=== PATIENT | male | born 1930 | race Caucasian/White ===

== ENCOUNTER 2019-03-27 21:05 | Observation (INO) | payer MEDICARE, OTHER ==
[~2019-03-27] VITALS: Ht 170.2 cm; Wt 89.5 kg
[~2019-03-27 21:05] MED LIST: METH4TAB3 PO; METH500T PO
--- NOTE | 2019-03-27 21:25 | NUR ---
pt is a&ox4. pt has very specific wishes. pt does not want ivs or "code blues." when asked to explain, he stated no chest compressions, intubation, or iv meds. he is ok with lab draws, im and po meds
[2019-03-27 21:39] LABS: BASOPHILS # (AUTO) 0.1 X10'3 (0-0.2); EOSINOPHILS # (AUTO) 0.2 X10'3 (0-0.9); HEMATOCRIT 43.1 % (42.0-52.0); HEMOGLOBIN 14.4 g/dl (14.0-17.9); LYMPHOCYTES # (AUTO) 2.2 X10'3 (1.1-4.8); LYMPHOCYTES % (AUTO) 24.4 % (21-51); MEAN CORPUSCULAR HGB CONC 33.3 g/dL (33.0-36.5); MEAN CORPUSCULAR VOLUME 87.2 FL (78-98); MEAN PLATELET VOLUME 8.6 FL (7.4-10.4); MONOCYTES # (AUTO) 0.9 X10'3 (0-0.9); MONOCYTES % (AUTO) 10.4 % (2-12); NEUTROPHILS # (AUTO) 5.7 X10'3 (1.8-7.7); NEUTROPHILS % (AUTO) 62.2 % (42-75); PLATELET COUNT 196 X10'3 (140-440); RED BLOOD COUNT 4.94 X10'6 (4.70-6.10); RED CELL DISTRIBUTION WIDTH 14.3 % (11.5-14.5); WHITE BLOOD COUNT 9.1 X10'3 (4.5-11.0)
[2019-03-27] MEDS ORDERED: aspirin 81mg tab.chew PO ONE (21:45)
[2019-03-27 21:53] LABS: ALANINE AMINOTRANSFERASE 25 U/L (12-78); ALBUMIN 3.4 G/DL (3.4-5.0); ALBUMIN/GLOBULIN RATIO 0.9 (1.1-1.5); ALKALINE PHOSPHATASE 65 IU/L (46-116); ANION GAP 9 (8-16); ASPARTATE AMINO TRANSFERASE 24 U/L (10-37); BILIRUBIN,TOTAL 0.4 MG/DL (0.1-1.0); BLOOD UREA NITROGEN 30 MG/DL (7-18); BUN/CREATININE RATIO 15.7 (5.4-32.0); CALCIUM 9.3 MG/DL (8.5-10.1); CHLORIDE 102 MMOL/L (99-107); CREATININE 1.91 MG/DL (0.60-1.10); GLUCOSE 117 MG/DL (70-104); INR 0.9 INR; PARTIAL THROMBOPLASTIN TIME 26 SECONDS (22-32); POTASSIUM 4.4 MMOL/L (3.5-5.1); SODIUM 135 MMOL/L (135-145); TOTAL CARBON DIOXIDE 24.5 MMOL/L (24-32); TOTAL PROTEIN 7.2 G/DL (6.4-8.2); eGFR 33 ML/MIN
[2019-03-27] MEDS ORDERED: HYDR10TA PO (21:53)
[2019-03-27] MEDS ORDERED: SYN0.088T PO (21:53)
[2019-03-27] MEDS ORDERED: enoxaparin 100mg/ml syringe SUBCUT ONE (22:40)
[2019-03-27] MEDS: normal saline 1000ml 1,000 ML IV SCH (23:02)
[2019-03-27] MEDS ORDERED: mag hydrox/Alum hydrox/simeth 30ml oral suspension PO PRN (23:05)
[2019-03-27] MEDS ORDERED: acetaminophen 325mg tablet PO PRN ×2 (23:05)
[2019-03-27] MEDS ORDERED: magnesium hydroxide 30ml (MOM) UD suspension PO PRN (23:05)
[2019-03-27] MEDS ORDERED: ondansetron/PF 4mg/2ml inj IV PRN (23:05)
[2019-03-27] MEDS ORDERED: HYDROcodone/acetaminophen 5mg/325mg tablet PO PRN (23:05)
[2019-03-27] MEDS ORDERED: HYDROcodone/acetaminophen 10/325mg tab PO PRN (23:05)
--- NOTE | 2019-03-27 23:16 | NUR ---
PT REFUSING TO HAVE A PIV, REFUSING IV FLUIDS. I NOTIFIED DR NEWBY.
[2019-03-28] VITALS (14 sets, daily range): BP systolic 114–169; BP diastolic 60–95
--- NOTE | 2019-03-28 00:06 | NUR ---
Patient in room PCU 3015. I have received report from [facility] and had the opportunity to ask questions and assume patient care.
--- NOTE | 2019-03-28 00:55 | NUR ---
pt did not want a gown. tele box applied and in his pocket of tshirt. he likes to wear his clothing inside out because it is more comfortable that way. denied any cardiac hx. no chest pain at this time. He has no IV and is a DNR. He stated he has prostate cancer and can't feel when he needs to void, likes to set a timer to void every 3 hours.
[2019-03-28 01:43] LABS: ANION GAP 7 (8-16); BLOOD UREA NITROGEN 30 MG/DL (7-18); BUN/CREATININE RATIO 16.5 (5.4-32.0); CALCIUM 8.7 MG/DL (8.5-10.1); CHLORIDE 104 MMOL/L (99-107); CREATININE 1.82 MG/DL (0.60-1.10); GLUCOSE 106 MG/DL (70-104); POTASSIUM 4.4 MMOL/L (3.5-5.1); SODIUM 137 MMOL/L (135-145); TOTAL CARBON DIOXIDE 26.2 MMOL/L (24-32); eGFR 35 ML/MIN
[2019-03-28 04:19] LABS: BASOPHILS # (AUTO) 0.1 X10'3 (0-0.2); BASOPHILS % (AUTO) 1.2 % (0-1); EOSINOPHILS # (AUTO) 0.3 X10'3 (0-0.9); EOSINOPHILS % (AUTO) 3.5 % (0-6); HEMATOCRIT 41.8 % (42.0-52.0); HEMOGLOBIN 14.1 g/dl (14.0-17.9); LYMPHOCYTES # (AUTO) 2.8 X10'3 (1.1-4.8); LYMPHOCYTES % (AUTO) 35.8 % (21-51); MEAN CORPUSCULAR HEMOGLOBIN 29.4 PG (27.0-31.0); MEAN CORPUSCULAR HGB CONC 33.6 g/dL (33.0-36.5); MEAN CORPUSCULAR VOLUME 87.5 FL (78-98); MEAN PLATELET VOLUME 8.8 FL (7.4-10.4); MONOCYTES # (AUTO) 0.8 X10'3 (0-0.9); MONOCYTES % (AUTO) 10.4 % (2-12); NEUTROPHILS # (AUTO) 3.9 X10'3 (1.8-7.7); NEUTROPHILS % (AUTO) 49.1 % (42-75); PLATELET COUNT 177 X10'3 (140-440); RED BLOOD COUNT 4.78 X10'6 (4.70-6.10); RED CELL DISTRIBUTION WIDTH 14.4 % (11.5-14.5); WHITE BLOOD COUNT 7.9 X10'3 (4.5-11.0)
--- NOTE | 2019-03-28 06:10 | NUR ---
Patient in room PCU 3015. I have received report from ERIC Wilson and had the opportunity to ask questions and assume patient care.
--- NOTE | 2019-03-28 06:20 | NUR ---
Problems reprioritized. Patient report given, questions answered & plan of care reviewed with Mayuri REYES.
[2019-03-28] MEDS ORDERED: hydrocortisone 10mg tablet PO SCH (08:00)
[2019-03-28] MEDS: normal saline 1000ml 1,000 ML IV SCH (09:02)
[2019-03-28] MEDS ORDERED: nitroGLYCERIN 0.4mg SUBLingual tab SL PRN (09:20)
[2019-03-28] MEDS ORDERED: aminophylline 250mg/10ml inj. IV PRN (09:20)
[2019-03-28] MEDS ORDERED: regadenoson 0.4mg/5ml syringe IV ONE ×2 (09:20→13:04)
[2019-03-28] MEDS ORDERED: metoprolol tartrate 1mg/ml inj IV PRN (09:20)
[2019-03-28] MEDS: aspirin 81mg tablet.DR PO SCH (09:41)
[2019-03-28] MEDS: levoTHYROXINE 88mcg tablet PO SCH (09:41)
[2019-03-28] MEDS ORDERED: aminophylline inj. 10 ML IV ONE (13:04)
--- NOTE | 2019-03-28 15:30 | NUR ---
Spoke to patient about maybe going home today. His Marie scan was negative. The patient lives [place] and his ride is coming from there. He said that he can't give him enough notice to get him here and then take him back tonight; they would have to drive late. The doctor told the patient he could go home tomorrow and we didn't have the Marie scan results. His ride can be here by 1100 tomorrow.
--- NOTE | 2019-03-28 18:14 | NUR ---
Patient in room PCU 3015. I have received report from Mayuri REYES and had the opportunity to ask questions and assume patient care.
--- NOTE | 2019-03-28 18:15 | NUR ---
Problems reprioritized. Patient report given, questions answered & plan of care reviewed with ERIC Joyce.
[2019-03-28] MEDS: hydrocortisone 10mg tablet PO SCH (21:05)
[2019-03-29 02:00] VITALS: BP 139/68
[2019-03-29 06:00] VITALS: BP 142/72
--- NOTE | 2019-03-29 06:38 | NUR ---
Problems reprioritized. Patient report given, questions answered & plan of care reviewed with Brynn REYES.
[2019-03-29] MEDS: levoTHYROXINE 88mcg tablet PO SCH (07:24)
[2019-03-29] MEDS: hydrocortisone 10mg tablet PO SCH (08:04)
[2019-03-29] MEDS: aspirin 81mg tablet.DR PO SCH (08:04)
--- NOTE | 2019-03-29 11:58 | NUR ---
Patient discharged home with friend. Friend driving. IV taken out, tele returned to tele room. No new meds, no concerns for discharge, pt stable. All belongings taken from room.
== END 2019-03-29 11:27 | disposition home or self-care (01) ==
LOC: ER 21:05 → PCU 3S 23:45 → CMPBEDREQ 23:53 → PCU 3S 03-29 09:30
PROVIDERS: ADMIT Hospitalist; ATTEND Hospitalist
DX: I20.9 Angina pectoris, unspecified (principal); R01.1 Cardiac murmur, unspecified; I12.9 Hypertensive chronic kidney disease with stage 1 through stage 4 chronic kidney disease, or unspecified chronic kidney disease; N18.9 Chronic kidney disease, unspecified; T46.6X5A Adverse effect of antihyperlipidemic and antiarteriosclerotic drugs, initial encounter; E78.5 Hyperlipidemia, unspecified; E03.9 Hypothyroidism, unspecified; E27.40 Unspecified adrenocortical insufficiency; Z85.46 Personal history of malignant neoplasm of prostate; Z91.041 Radiographic dye allergy status; Y92.9 Unspecified place or not applicable
CPT/HCPCS: 36415; 71045; 78452; 80048; 80053; 84443; 84484; 85025; 85610; 85730; 87070; 93005; 93017; 93306; 99284; A9500; G0378; J0280; J7030; J1650